=== PATIENT | male | born 1995 | race Caucasian/White ===

== ENCOUNTER → 2020-11-27 11:46 | Outpatient (CLI) | payer OTHER, SELFPAY ==
[2020-11-27 19:18] LABS: Hemoglobin A1C% w Est Avg Glu 10.3 % (4.0-6.0)
== END ==
PROVIDERS: PCP Physician Assistant; Visit Provider Physician Assistant
DX: E10.65 Type 1 diabetes mellitus with hyperglycemia (principal)
CPT/HCPCS: 83036

== ENCOUNTER → 2023-09-07 10:19 | Outpatient (CLI) | payer OTHER, SELFPAY ==
[2023-09-07 19:41] LABS: Add Manual Diff / Slide Review NO; Basophils Absolute Auto 100 /uL (0-100); Basophils Percent Auto 1.2 % (0-2); Eosinophils Absolute Auto 100 /uL (0-450); Eosinophils Percent Auto 0.7 % (2-4); Hematocrit 39.9 % (41-53); Hemoglobin 12.6 g/dL (13.5-17.5); Lymphocytes Absolute Auto 1600 /uL (1100-4500); Lymphocytes Percent Auto 20.7 % (25-40); Mean Corpuscular HGB Conc 31.6 % (30-36); Mean Corpuscular Hemoglobin 22.3 PG (26-34); Mean Corpuscular Volume 70.7 fL (80-100); Monocytes Absolute Auto 400 /uL (0-900); Monocytes Percent Auto 5.5 % (3-14); Neutrophils Absolute Auto 5600 /uL (1500-7000); Neutrophils Percent Auto 71.9 % (50-75); Platelet Count 321 X10^3/uL (150-400); Red Blood Cell Count 5.64 X10^6/uL (4.5-5.9); White Blood Cell Count 7.8 X10^3/uL (4.5-11.0)
[2023-09-07 19:48] LABS: Hemoglobin A1C% w Est Avg Glu 10.2 % (4.0-6.0)
[2023-09-07 19:56] LABS: Alanine Aminotransferase 21 IU/L (<50); Albumin Globulin Ratio 1.3 (1.0-2.8); Alkaline Phosphatase 111 U/L (38-126); Aspartate Aminotransferase 31 IU/L (17-59); BUN Creatinine Ratio 26.3 (6-22); Bilirubin Total 1.1 mg/dL (0.2-1.3); Blood Urea Nitrogen 21 mg/dL (9-20); Calcium 9.7 mg/dL (8.4-10.2); Carbon Dioxide 29 mmol/L (22-32); Chloride 99 mmol/L (98-107); Cholesterol 234 mg/dL (140-199); Estimated Glomerular Filt Rate > 60 mL/min (>60); Glucose 401 mg/dL (70-100); HDL Cholesterol 69 mg/dL (40-60); HEMOLYSIS < 15 (0-50); LDL Cholesterol Calculated 149 mg/dL (<100); Sodium 133 mmol/L (137-145); Triglycerides 80 mg/dL (35-150)
[2023-09-07 20:01] LABS: Potassium 5.4 mmol/L (3.4-5.1)
[2023-09-07 20:21] LABS: Creatinine Urine Random 32.5 mg/dL
[2023-09-07 20:27] LABS: Microalbumin Urine Random < 0.6 mg/dL (0-1.6)
== END ==
PROVIDERS: PCP Physician Assistant Medical; Visit Provider Physician Assistant
DX: E10.65 Type 1 diabetes mellitus with hyperglycemia (principal)
CPT/HCPCS: 80053; 80061; 82043; 82570; 83036; 85025